=== PATIENT | female | born 1975 | race Caucasian/White ===

== ENCOUNTER 2017-09-23 13:48 | Inpatient (IN) | payer MEDICARE ==
[2017-09-23] MEDS ORDERED: RINGERS SOLUTION,LACTATED 1,000 ML IV ONE ×3 (14:00→16:07)
[2017-09-23] MEDS ORDERED: ONDANSETRON HCL INJ/PF 4 MG/2 ML SDV IV ONE (14:00)
[2017-09-23] MEDS ORDERED: ONDANSETRON 4 MG TAB.RAPDIS PO ONE (14:00)
--- NOTE | 2017-09-23 14:03 | ER Document Report ---
ED Medical Screen (RME) - General Mode of Arrival: Wheelchair Information source: Patient, Relative - TRAVEL OUTSIDE OF THE [place].S. IN LAST 30 DAYS: No <EBONY WARREN - Last Filed: 09/23/17 13:58> <LEOBARDO BASILIO - Last Filed: 09/23/17 15:32> - General Chief Complaint: Nausea/Vomiting/Diarrhea Stated Complaint: VOMITING Time Seen by Provider: 09/23/17 13:54 Notes: 41 y.o female with a PMHx of Type 2 DM and rheumatoid arthritis presents to the ED with abd pain and vomiting. She reports that her pain is in her lower abd and periumbilical region slowly worsening since onset around 0300 this morning. pt reports watery diarrhea and that she has been around people with similar symptoms a couple weeks ago but no one currently. Pt denies any blood in vomit or stool. Pt states that she has experienced pain and vomiting like this in the past when she had the stomach flu. 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 No PCP. (EBONY WARREN) - Related Data Allergies/Adverse Reactions: Sulfa (Sulfonamide Antibiotics) Allergy (Verified 09/23/17 13:58) Past Medical History - General Information source: Patient - Social History Cigarette use (# per day): No Chew tobacco use (# tins/day): No Frequency of alcohol use: None Drug Abuse: None <EBONY WARREN - Last Filed: 09/23/17 13:58> Review of Systems - Review of Systems Constitutional: No symptoms reported EENT: No symptoms reported Cardiovascular: No symptoms reported Respiratory: No symptoms reported Gastrointestinal: See HPI, Abdominal pain, Diarrhea, Nausea, Vomiting. denies: Blood in vomit Genitourinary: No symptoms reported Female Genitourinary: No symptoms reported Musculoskeletal: No symptoms reported Skin: No symptoms reported Hematologic/Lymphatic: No symptoms reported Neurological/Psychological: No symptoms reported -: Yes All other systems reviewed and negative <EBONY WARREN - Last Filed: 09/23/17 13:58> Physical Exam <EBONY WARREN - Last Filed: 09/23/17 13:58> <LEOBARDO BASILIO - Last Filed: 09/23/17 15:32> - Vital signs Vitals: Temp Pulse Resp BP Pulse Ox 98.6 F 126 H 18 92/67 L 97 09/23/17 13:52 09/23/17 13:52 09/23/17 13:52 09/23/17 13:52 09/23/17 13:52 - Notes Notes: Physical Exam: General: Alert, retching, uncomfortable. HEENT: Normocephalic. Atraumatic. PERRLA. Extraocular movements intact. Oropharynx clear. Neck: Supple. Respiratory: No respiratory distress. Heart: Tachycardic rate, regular rhythm. Abdominal: No distension. Extremities: Moves all four extremities. Neurological: Normal cognition. AAOx4. Normal speech. Psychological: Normal affect. Normal Mood. Skin: Warm to touch. (EBONY WARREN) Course - Laboratory Result Diagrams: 09/23/17 14:20 09/23/17 14:20 <LEOBARDO BASILIO - Last Filed: 09/23/17 15:32> - Vital Signs Vital signs: Temp Pulse Resp BP Pulse Ox 98.6 F 126 H 18 92/67 L 97 09/23/17 13:52 09/23/17 13:52 09/23/17 13:52 09/23/17 13:52 09/23/17 13:52 - Laboratory Laboratory results interpreted by me: 09/23/17 09/23/17 14:20 14:20 RDW 16.7 H Seg Neutrophils % 81.2 H Lymphocytes % 10.4 L Glucose 158 H Scribe Documentation - Scribe Written by Scribe:: Ata Quintanilla 09/23/17 1406 acting as scribe for :: Alessia <EBONY WARREN - Last Filed: 09/23/17 13:58>
--- NOTE | 2017-09-23 14:25 | ER Document Report ---
ED General - General Chief Complaint: Nausea/Vomiting/Diarrhea Stated Complaint: VOMITING Time Seen by Provider: 09/23/17 13:54 Mode of Arrival: Wheelchair Notes: Patient with history of rheumatoid arthritis on methotrexate weekly presents with 3 days of profuse watery nonbloody diarrhea nausea and nonbloody nonbilious vomiting. Patient states that she has diffuse abdominal pain that is worse in the right lower quadrant. She still has her appendix. Denies any recent fevers cough or congestion denies any chest pain at this time. Her daughter had similar symptoms of diarrhea several weeks ago but otherwise has not been attacks. No recent hospitalizations but is currently on amoxicillin for upper respiratory infection. Denies any history of C. difficile. Denies any travel outside the country or outside of the state recently. TRAVEL OUTSIDE OF THE [place] IN LAST 30 DAYS: No - Related Data Allergies/Adverse Reactions: Sulfa (Sulfonamide Antibiotics) Allergy (Verified 09/23/17 13:58) Past Medical History - General Information source: Patient - Social History Smoking Status: Never Smoker Cigarette use (# per day): No Chew tobacco use (# tins/day): No Frequency of alcohol use: None Drug Abuse: None Family History: Reviewed & Not Pertinent Patient has suicidal ideation: No Patient has homicidal ideation: No Renal/ Medical History: Denies: Hx Peritoneal Dialysis Review of Systems - Review of Systems Constitutional: Malaise EENT: No symptoms reported Cardiovascular: No symptoms reported Respiratory: No symptoms reported Gastrointestinal: Abdominal pain, Diarrhea, Vomiting Genitourinary: No symptoms reported Female Genitourinary: No symptoms reported Musculoskeletal: No symptoms reported Skin: No symptoms reported Hematologic/Lymphatic: No symptoms reported Neurological/Psychological: No symptoms reported Physical Exam - Vital signs Vitals: Temp Pulse Resp BP Pulse Ox 98.6 F 126 H 18 92/67 L 97 09/23/17 13:52 09/23/17 13:52 09/23/17 13:52 09/23/17 13:52 09/23/17 13:52 - General General appearance: Other - Tired appearing - HEENT Head: Normocephalic, Atraumatic - Dry oral mucous membranes - Respiratory Respiratory status: No respiratory distress Chest status: Nontender Breath sounds: Normal Chest palpation: Normal - Cardiovascular Rhythm: Tachycardia Heart sounds: Normal auscultation - Abdominal Inspection: Normal Distension: No distension Bowel sounds: Normal Tenderness: Tender, McBurney's point - Back Back: Normal - Neurological Neuro grossly intact: Yes - Psychological Associated symptoms: Normal affect, Normal mood Course - Re-evaluation Re-evalutation: 09/23/17 14:24 Patient has mild tachycardia with dry oral mucous membranes. Patient is currently on amoxicillin at this time for upper respiratory infection. C. difficile and stool cultures will be obtained. She also has tenderness more so in her right lower quadrant than any other quadrant on abdominal exam. Will perform CT abdomen pelvis rule out acute pathology. 09/23/17 16:10 CT abdomen pelvis shows right lower lobe pneumonia consistent with aspiration pneumonia. Patient remains tachycardic but her blood pressure on repeat manual was 110/60. Patient alert and oriented. Due to immunocompromise state due to rheumatoid arthritis medications being taken patient will be admitted to inpatient. Zosyn blood cultures and fecal culture and C. difficile pending. Discussed case with Dr. Damian who will accept the patient - Vital Signs Vital signs: Temp Pulse Resp BP Pulse Ox 98.6 F 126 H 18 110/60 97 09/23/17 13:52 09/23/17 13:52 09/23/17 13:52 09/23/17 16:08 09/23/17 13:52 - Laboratory Result Diagrams: 09/23/17 14:20 09/23/17 14:20 Laboratory results interpreted by me: 09/23/17 09/23/17 14:20 14:20 RDW 16.7 H Seg Neutrophils % 81.2 H Lymphocytes % 10.4 L Glucose 158 H Discharge - Discharge Clinical Impression: Dehydration Aspiration pneumonia Qualifiers: Aspiration pneumonia type: unspecified Laterality: right Lung location: lower lobe of lung Qualified Code(s): J69.0 - Pneumonitis due to inhalation of food and vomit Diarrhea Qualifiers: Diarrhea type: unspecified type Qualified Code(s): R19.7 - Diarrhea, unspecified Vomiting Qualifiers: Vomiting type: unspecified Vomiting Intractability: non-intractable Nausea presence: with nausea Qualified Code(s): R11.2 - Nausea with vomiting, unspecified Condition: Fair Disposition: ADMITTED INPATIENT Admitting Provider: Rickie Unit Admitted: CU
[2017-09-23 14:53] LABS: ALANINE AMINOTRANSFERASE 34 U/L (9-52); ALBUMIN 3.7 g/dL (3.5-5.0); ALKALINE PHOSPHATASE 60 U/L (38-126); ANION GAP 13 (5-19); ASPARTATE AMINO TRANSFERASE 23 U/L (14-36); BILIRUBIN,DIRECT 0.2 mg/dL (0.0-0.4); BILIRUBIN,TOTAL 0.4 mg/dL (0.2-1.3); BLOOD UREA NITROGEN 16 mg/dL (7-20); CALCIUM 8.9 mg/dL (8.4-10.2); CARBON DIOXIDE 26 mmol/L (22-30); CHLORIDE 103 mmol/L (98-107); GLUCOSE 158 mg/dL (75-110); LIPASE 65.8 U/L (23-300); POTASSIUM 4.2 mmol/L (3.6-5.0); SODIUM 141.5 mmol/L (137-145); TOTAL PROTEIN 6.4 g/dL (6.3-8.2)
[2017-09-23 14:57] LABS: ABSOLUTE EOSINOPHILS # (AUTO) 0.1 10^3/uL (0.0-0.6); ABSOLUTE LYMPHOCYTES (AUTO) 0.7 10^3/uL (0.5-4.7); ABSOLUTE MONOCYTES (AUTO) 0.5 10^3/uL (0.1-1.4); ABSOLUTE NEUT (AUTO) 5.8 10^3/uL (1.7-8.2); BASOPHILS % (AUTO) 0.1 % (0-2); EOSINOPHILS % (AUTO) 1.1 % (0-6); HEMATOCRIT 37.2 % (36.0-47.0); HEMOGLOBIN 12.3 g/dL (12.0-15.5); LYMPHOCYTES % (AUTO) 10.4 % (13-45); MEAN CORPUSCULAR HEMOGLOBIN 28.4 pg (27.0-33.4); MEAN CORPUSCULAR HGB CONC 33.2 g/dL (32.0-36.0); MEAN CORPUSCULAR VOLUME 86 fl (80-97); MONOCYTES % (AUTO) 7.2 % (3-13); PLATELET COUNT 202 10^3/uL (150-450); RED BLOOD COUNT 4.35 10^6/uL (3.72-5.28); RED CELL DISTRIBUTION WIDTH 16.7 % (11.5-14.0); SEGMENTED NEUTROPHILS % (AUTO) 81.2 % (42-78); TOTAL CELLS COUNTED % (AUTO) 100 %; WHITE BLOOD COUNT 7.1 10^3/uL (4.0-10.5)
--- NOTE | 2017-09-23 15:34 | RADIOLOGY REPORT (SQ) ---
EXAM DESCRIPTION: CT ABD/PELVIS WITH IV ONLY COMPLETED DATE/TIME: 09/23/2017 3:18 pm REASON FOR STUDY: N/V/D, RLQ TTP COMPARISON: None. TECHNIQUE: CT scan of the abdomen and pelvis performed using helical scanning technique with dynamic intravenous contrast injection. No oral contrast. Images reviewed with lung, soft tissue, and bone windows. Reconstructed coronal and sagittal MPR images reviewed. Delayed images for evaluation of the urinary system also acquired. All images stored on PACS. All CT scanners at this facility use dose modulation, iterative reconstruction, and/or weight based d osing when appropriate to reduce radiation dose to as low as reasonably achievable (ALARA). [facility]: Dose Right [facility]: CareDose [facility]: Dose Right [facility]: Teradose 4D [facility]: Forward Talent CONTRAST TYPE AND DOSE: contrast/concentration: Isovue 370.00 mg/ml; Total Contrast Delivered: 79.0 ml; Total Saline Delivered: 68.0 ml RENAL FUNCTION: None required. The patient is less than 50 years old. RADIATION DOSE: CT Rad equipment meets quality standard of care and radiation dose reduction techniq ues were employed. CTDIvol: 7.0 - 9.6 mGy. DLP: 996 mGy-cm.. LIMITATIONS: None. FINDINGS: LOWER CHEST: There is patchy airspace consolidation in the right lower lobe, consistent wi th pneumonia. Aspiration pneumonia is not excluded. LIVER: Normal size. No masses. No dilated ducts. SPLEEN: There are multiple hypodense lesions within the spleen. Large measures 1.8 cm. PANCREAS: No masses. No significant calcifications. No adjacent inflammation or peripancreatic fluid collections. Pancreatic duct not dilated. GALLBLADDER: Surgically absent. ADRENAL GLANDS: No significant masses or asymmetry. RIGHT KIDNEY AND URETER: No solid masses. No significant calcifications. No hydronephrosis or hyd roureter. LEFT KIDNEY AND URETER: No solid masses. No significant calcifications. No hydronephrosis or hydr oureter. AORTA AND VESSELS: No aneurysm. No dissection. Renal arteries, SMA, celiac without stenosis. RETROPERITONEUM: No retroperitoneal adenopathy, hemorrhage or masses. BOWEL AND PERITONEAL CAVITY: No masses or inflammatory changes. No free fluid or peritoneal masses. APPENDIX: Normal. PELVIS: No mass. No free fluid. Normal bladder. ABDOMINAL WALL: There is some edema and possible small hematoma formation in the superficial soft tis sues of the anterior aspect of the left lower quadrant. In the anterior superficial soft tissues of the lower pelvis there is a small structure with internal calcifications, consistent with a shot gran uloma. BONES: No significant or acute findings. OTHER: No other significant finding. IMPRESSION: 1. Patchy consolidation in the right lower lobe, consistent with pneumonia. Given the pattern, this may represent aspiration pneumonia. Recommend clinical correlation. 2. No evidence of an acute intra-abdominal process 3. Multiple hypoattenuating lesions within the spleen. These likely represent simple cysts, however they are incompletely evaluated on this exam. Consider MRI for a routine basis for further characte rization if clinically warranted. TECHNICAL DOCUMENTATION: JOB ID: [id number] Quality ID # [id number]: Final reports with documentation of one or more dose reduction techniques (e.g., Au tomated exposure control, adjustment of the mA and/or kV according to patient size, use of iterative reconstruction technique) 2010 [employer]- All Rights Reserved Reading location - IP/workstation name: [email or web address]
[2017-09-23] MEDS ORDERED: FENTANYL CITRATE INJ/PF 100 MCG/2 ML AMPUL IV ONE (15:52)
[2017-09-23] MEDS ORDERED: ACETAMINOPHEN 325 MG TABLET PO PRN (16:25)
[2017-09-23] MEDS ORDERED: RINGERS SOLUTION,LACTATED 1,000 ML IV PRN (16:25)
[2017-09-23] MEDS ORDERED: PROMETHAZINE HCL INJ 50 MG/1 ML VIAL IM PRN (16:36)
[2017-09-23] MEDS ORDERED: ONDANSETRON HCL INJ/PF 4 MG/2 ML SDV IV PRN (16:36)
[2017-09-23] MEDS ORDERED: GLUCAGON,HUMAN RECOMB 1 MG INJ IM PRN (16:42)
[2017-09-23] MEDS ORDERED: DEXTROSE 50%-WATER 25 GM/50 ML DISP.SYRIN IV PRN ×2 (16:42)
[2017-09-23] MEDS ORDERED: DEXTROSE 40% GEL 15 GM TUBE PO PRN ×2 (16:42)
[2017-09-23] MEDS ORDERED: PIPERACILLIN/TAZOBACTAM 4.5 GM VIAL IV PRN (17:20)
[2017-09-23] MEDS: LACTOBACILLUS ACIDOPHILUS 250 MG TAB PO SCH (18:23)
[2017-09-23] MEDS ORDERED: PIPERACILLIN/TAZOBACTAM 4.5 GM VIAL IV ONE (18:56)
--- NOTE | 2017-09-23 18:59 | HISTORY AND PHYSICAL E ---
History and Physical NAME: EBONY PALACIO : 1975 AGE: 41Y ADMITTED: 09/23/2017 ROOM: 317 CODE STATUS: Full code. 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 Cobb in [place], [place]. ELEMENTARY ART TEACHER: Dr. Kumar at [facility]. CHIEF COMPLAINT: Nausea, vomiting, diarrhea. HISTORY OF PRESENT ILLNESS: The patient is a 41-year-old female with a past medical history of rheumatoid arthritis and chronic immunosuppression. The patient presented to the emergency department with a chief complaint of watery diarrhea. According to the patient her children have had viruses that have consisted of GI symptoms since [facility], affecting each child in the family. The patient stated that she had a generalized body ache 3 days ago and subsequently took a gram and a half of amoxicillin for these symptoms. The patient felt fever, chilled, and persisted vomiting as well and subsequent choking associated with this. Upon presentation to the emergency department the patient was found to be tachycardic with a heart rate of 126. Findings on chest x-ray suggestive of a right lower lobe pneumonia and significant hypotension with systolic blood pressures in the 80s. The patient received a fluid bolus with improvement of her blood pressure into the 90s systolically, an improvement of her heart rate into the 110s. The patient has been afebrile since presentation. The patient is unable to quantify how much diarrhea that she has had but just states that it is watery. The patient denies any respiratory symptoms, including shortness of breath. The patient denies any chest pain. No cough or sputum production. The patient has been referred to the hospitalist for admission and management. PAST MEDICAL HISTORY: 1. Rheumatoid arthritis. 2. Diabetes mellitus type 2. 3. Hypothyroidism. PAST SURGICAL HISTORY: Negative. ALLERGIES: SULFA, WHICH IS ANAPHYLACTIC. HOME MEDICATIONS: 1. Xeljanz 11 mg p.o. daily. 2. Plaquenil 400 mg p.o. at bedtime. 3. Prednisone 10 mg p.o. q.a.m. and 10 mg p.o. q.p.m. 4. Folic acid 1 mg p.o. daily. 5. Trulicity 1.5 mg sub-Q weekly. 6. Levemir 66 units subcutaneously q.a.m. 7. Levothyroxine 100 mcg p.o. daily. SOCIAL HISTORY: The patient currently resides at home with her and children. 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 She does have 3 small children. The patient denies any history of tobacco use. No history of alcohol or illicit drug use. FAMILY MEDICAL HISTORY: The patient's mother is alive. She resides in a senior care facility with dementia. She is diabetic. The patient's father is of CVA. The patient does have a brother with type 2 diabetes and another brother with autism. The patient has 3 children, all of which are healthy. REVIEW OF SYSTEMS: CONSTITUTIONAL: The patient denies any weakness, but admits to loss of appetite, dizziness, fevers, and chills. SKIN: The patient denies any diaphoresis, rashes, bruising, itching. HEENT: The patient denies any vision change, hearing loss, nasal drainage, or sore throat. No headaches. CARDIOVASCULAR: The patient denies any heart palpitations, chest pain, or dyspnea. RESPIRATORY: The patient denies any cough, sputum production, or hemoptysis. GASTROINTESTINAL: The patient denies any hematemesis, melena, or hematochezia. Does admit to nausea, vomiting, as well as diarrhea. GENITOURINARY: The patient denies any hematuria, polyuria, or dysuria. NEUROLOGIC: No seizures, tremors, or loss of consciousness. HEMATOLOGIC: Denies any dariela bleeding, easy bruising. ENDOCRINE: Denies any recent weight changes. Had reasonable control of glycemic control. PSYCHIATRIC: Denies any suicidal or homicidal ideations. The rest of the review of the other organ systems is negative. PHYSICAL EXAMINATION: GENERAL: On examination the patient is a well-developed, well-nourished, 41-year-old female who is awake, alert. She oriented to person, place, time, and situation. She is verbal, conversational, does not appear to be in acute distress. VITAL SIGNS: Temperature 98.6, pulse 118, respirations 18, blood pressure is 109/67, oxygen saturation is 97% on room air. SKIN: Pale, dry; no rash. She is not diaphoretic. HEENT: Pupils equal, round reactive to light and accommodation. Conjunctivae are pink. Sclerae are nonicteric. There are no mouth lesions. Tongue is midline. NECK: Supple. No JVD. No palpable lymphadenopathy or thyromegaly. CARDIOVASCULAR: Heart is regular. There is no murmur or rub. CHEST: Clear, symmetrical, unlabored. ABDOMEN: Soft, nontender, nondistended. BACK: No CVA tenderness or sacral edema. EXTREMITIES: No clubbing, cyanosis, edema, or peripheral signs of embolization. Pedal pulses +1 noted bilaterally. PSYCHIATRIC: Appropriate affect, pleasant mood. DIAGNOSTIC STUDIES: Lab values are as follows, hematology obtained on 09/23/2017; WBC is 10.1, hemoglobin 12.3, hematocrit is 37.5, platelet count is 202,000. Chemistry obtained on 09/23/2017; sodium 141, potassium 4.2, chloride 103, carbon dioxide 26, BUN 16, creatinine 0.52, glucose 158, calcium is 8.9, bilirubin is 0.4, AST 23, ALT is 34, alk-phos 60, total protein 6.4, albumin 3.7. Lipase is 65.8. HCG is negative. CT of the abdomen and pelvis obtained on 09/23/2017 reveals patchy consolidation of the right lower lobe consistent with a pneumonia. No evidence of acute intraabdominal process with multiple hypoattenuation lesions within the spleen, most likely represents a simple cyst. IMPRESSION AND PLAN: 1. Acute gastroenteritis. Do have suspicion for a viral process. Will continue supportive measures including hydration and antiemetic therapy as well as stool studies and follow. 2. Aspiration pneumonia. Will cover with Zosyn. 3. Early sepsis. Given the patient is immunocompromised, I do not feel that she is going to have a bump in her white count, therefore, the patient does give a history of subjective fevers as well as hypotension, tachycardia, which does fit the picture for this. Will continue to aggressively hydrate and follow. 4. Rheumatoid arthritis. Will hold the patient's agents at this time. 5. Diabetes mellitus type 2. Will add a sliding scale coverage for now and monitor. CODE STATUS: The patient is a full code. DISPOSITION: Depending on the patient's symptomatology and diagnostic findings will reevaluate in the a.m. Will admit the patient to inpatient IMCU as the patient's expected length of stay should surpass two midnights. TIME SPENT: On this admission including assessment, plan, physical examination, patient education, review of previous records is 50 minutes. DICTATING PHYSICIAN: AGUSTO FROST NP [id number] PHY#: [id number] ID: [id number] JOB#: [id number] ACCT: [id number] cc:AGUSTO FROST NP > WILLIAM
[2017-09-23] MEDS: PIPERACILLIN SODIUM/TAZOBACTAM 4.5 GM in NORMAL SALINE 100 ML IV SCH (19:56)
[2017-09-23] MEDS ORDERED: NORMAL SALINE 500 ML IV ONE (21:30)
[2017-09-23] MEDS ORDERED: NORMAL SALINE 1000 ML 1,000 ML IV PRN (22:00)
[2017-09-23] MEDS: HEPARIN SOD (PORCINE) 5,000 UNIT/ML 1 ML SYRINGE SUBCUT SCH (22:04)
[2017-09-23] MEDS: ACETAMINOPHEN 325 MG TABLET PO PRN (23:11)
[2017-09-24] MEDS: PIPERACILLIN SODIUM/TAZOBACTAM 4.5 GM in NORMAL SALINE 100 ML IV SCH ×4 (00:50→17:19)
[2017-09-24 01:08] LABS: APPEARANCE,URINE CLEAR; BILIRUBIN,URINE NEGATIVE (NEGATIVE); COLOR,URINE YELLOW; GLUCOSE, URINE NEGATIVE (NEGATIVE); KETONES,URINE TRACE mg/dL (NEGATIVE); LEUKOCYTE ESTERASE,URINE NEGATIVE (NEGATIVE); NITRITE,URINE NEGATIVE (NEGATIVE); PROTEIN,URINE NEGATIVE (NEGATIVE); URINE SPECIFIC GRAVITY 1.027; UROBILINOGEN,URINE NEGATIVE mg/dL (<2.0)
[2017-09-24] MEDS: ACETAMINOPHEN 325 MG TABLET PO PRN ×3 (04:07→22:04)
[2017-09-24 05:53] LABS: HEMATOCRIT 34.2 % (36.0-47.0); HEMOGLOBIN 11.4 g/dL (12.0-15.5); MEAN CORPUSCULAR HEMOGLOBIN 28.5 pg (27.0-33.4); MEAN CORPUSCULAR HGB CONC 33.3 g/dL (32.0-36.0); MEAN CORPUSCULAR VOLUME 86 fl (80-97); PLATELET COUNT 159 10^3/uL (150-450); RED BLOOD COUNT 3.99 10^6/uL (3.72-5.28); RED CELL DISTRIBUTION WIDTH 17.1 % (11.5-14.0)
[2017-09-24] MEDS: HEPARIN SOD (PORCINE) 5,000 UNIT/ML 1 ML SYRINGE SUBCUT SCH ×3 (06:08→21:00)
[2017-09-24 06:16] LABS: ANION GAP 10 (5-19); BLOOD UREA NITROGEN 11 mg/dL (7-20); CARBON DIOXIDE 26 mmol/L (22-30); CHLORIDE 104 mmol/L (98-107); GLUCOSE 106 mg/dL (75-110); POTASSIUM 3.6 mmol/L (3.6-5.0); SODIUM 140.3 mmol/L (137-145)
[2017-09-24] MEDS: LACTOBACILLUS ACIDOPHILUS 250 MG TAB PO SCH ×2 (09:10→17:18)
[2017-09-24] MEDS ORDERED: RINGERS SOLUTION,LACTATED 1,000 ML IV ONE (09:30)
--- NOTE | 2017-09-24 12:45 | PROGRESS NOTE E ---
Progress Note NAME: EBONY PALACIO : 1975 AGE: 41Y DATE: 09/24/2017 ROOM: 317 SUBJECTIVE: The patient is currently lying in bed. She states that she feels better than she did yesterday, still a little weak. The patient has had 2 episodes of diarrhea since being at the hospital and stool studies were not collected until this morning because of that. The patient denies any chills, but does admit to a fever overnight and the patient spiked a temp up to 103.1. The patient's blood pressures remain systolically in the 90's. The patient is eating and drinking without issue. She is not making lactate. According to the patient, it appears that her family consumed almost all of the eggs that had been recalled, but denies consuming these raw. The patient does not voice any other concerns at this time. BRIEF HISTORY: The patient is a 41-year-old female with a past medical history of rheumatoid arthritis and chronic immunosuppression. The patient came to the emergency department with a chief complaint of persistent nausea and vomiting, which has been persisting, as well as diarrhea for over 2 days. The patient does have small children in the home who have had illnesses as well. The patient denied any respiratory symptoms. The patient did have a CT scan of the abdomen and pelvis and incidental finding was consistent with an aspiration pneumonia. The patient was started on Zosyn for coverage. The patient's stool studies have been negative for C. diff. and the patient was hypotensive and did receive a fluid bolus, but at no point was making lactate and the patient does not voice any concerns at this time. REVIEW OF SYSTEMS: The rest of the review of systems is negative. MEDICATIONS: Medications have been reviewed. OBJECTIVE: GENERAL: The patient is a 41-year-old female who is awake, alert, and oriented to person, place, time, and situation. She is verbal and conversational, does not appear to be in any acute distress. VITAL SIGNS: Temperature is 99.2, pulse 95, respirations 18, blood pressure is 94/60, oxygen saturation is 95% on room air. SKIN: Warm and dry. No rash. She is not diaphoretic. HEENT: Pupils equal, round, and reactive to light and accommodation. Conjunctivae pink. NECK: There is no evidence of JVD. CARDIOVASCULAR SYSTEM: Heart is regular. There is no murmur or rub. CHEST: Clear, symmetrical, unlabored. ABDOMEN: Soft, nontender, and nondistended. BACK: No CVA tenderness or sacral edema. EXTREMITIES: No clubbing, cyanosis, edema. PSYCHIATRIC: Appropriate affect, pleasant mood. DIAGNOSTIC DATA: Lab values are as follows: Hematology obtained on 09/24/2017: WBC's are 5.0, hemoglobin is 11.4, hematocrit is 34.2, platelet count is 159,000. Chemistries obtained on 09/24/2017: Sodium is 140, potassium is 3.6, chloride is 104, carbon dioxide 26, BUN 11, creatinine is 0.58, glucose is 106, calcium is 8.0, magnesium is 1.6. Microbiology: Blood cultures obtained 09/23/2017 are pending. Stool culture obtained on 09/24/2017 is pending. IMPRESSION AND PLAN: 1. ACUTE GASTRITIS. IT COULD BE A VIRAL PROCESS VERSUS POSSIBLE SALMONELLA, CURRENTLY AWAITING STOOL STUDIES. Will add Zithromax to cover possible salmonella and follow. 2. ASPIRATION PNEUMONIA SECONDARY TO THE PATIENT'S NAUSEA AND VOMITING. She is covered with Zosyn at this time. 3. EARLY SEPSIS. Given the patient's immunocompromised state, will continue to monitor the patient. Lactate acid was not elevated; however, she was hypotensive and quite febrile. Will continue to hydrate and monitor. 4. RHEUMATOID ARTHRITIS. Have held the patient's agents at this time. 5. DIABETES MELLITUS TYPE 2. Will continue sliding-scale coverage, hold the patient's oral agents. DISPOSITION: The patient is a FULL CODE. Pending the patient's symptomatology and diagnostic findings, will reevaluate in the a.m. TIME: Time spent on this followup including assessment, plan, physical examination, patient education, review of records is 25 minutes. DICTATING PHYSICIAN: AGUSTO FROST NP [id number] PHY#: [id number] ID: [id number] JOB#: [id number] ACCT: [id number] cc: >
[2017-09-24] MEDS: AZITHROMYCIN 500 MG in DEXTROSE 5%-WATER 250 ML IV SCH (14:52)
[2017-09-24] MEDS ORDERED: LEVOTHYROXINE SODIUM 0.1 MG TABLET PO ONE (15:30)
[2017-09-24] MEDS: INSULIN LISPRO 100 UNIT/ML 3 ML VIAL SUBCUT PRN (17:18)
[2017-09-24] MEDS: PREDNISONE 5 MG TABLET PO SCH (17:35)
[2017-09-24] MEDS ORDERED: PREDNISONE 5 MG TABLET PO SCH (18:00)
[2017-09-25] MEDS: PIPERACILLIN SODIUM/TAZOBACTAM 4.5 GM in NORMAL SALINE 100 ML IV SCH ×3 (00:02→11:12)
[2017-09-25] MEDS: HEPARIN SOD (PORCINE) 5,000 UNIT/ML 1 ML SYRINGE SUBCUT SCH ×3 (05:03→21:09)
[2017-09-25] MEDS: LEVOTHYROXINE SODIUM 0.1 MG TABLET PO SCH (05:28)
[2017-09-25] MEDS: LACTOBACILLUS ACIDOPHILUS 250 MG TAB PO SCH ×2 (09:19→17:55)
[2017-09-25] MEDS: CHOLECALCIFEROL (D3) 1,000 UNIT TABLET PO SCH (09:19)
[2017-09-25] MEDS: FOLIC ACID 1 MG TABLET PO SCH (09:20)
[2017-09-25] MEDS: PREDNISONE 5 MG TABLET PO SCH (09:20)
[2017-09-25] MEDS: ATORVASTATIN CALCIUM 20 MG TABLET PO SCH (09:20)
[2017-09-25] MEDS ORDERED: PROMETHAZINE HCL INJ 25 MG/1 ML VIAL IM PRN (10:23)
[2017-09-25] MEDS: AZITHROMYCIN 500 MG in DEXTROSE 5%-WATER 250 ML IV SCH (13:11)
[2017-09-25] MEDS ORDERED: DEXTROSE 5%-WATER 1000 ML 1,000 ML with POTASSIUM CHLORIDE 20 MEQ IV PRN ×2 (14:42)
[2017-09-25] MEDS ORDERED: POTASSI CL 20 MEQ/NS 1L 1000 ML IV PRN (15:15)
--- NOTE | 2017-09-25 15:21 | PDOC PROGRESS REPORT ---
Subjective Progress Note for:: 09/25/17 Subjective:: patient is complaining of nausea and continued abdominal pain Diarrhea is still persistent it is watery nonbloody non-mucousy She has no fever no chills and minimal cough Reason For Visit: DIARRHEA, PNA Physical Exam Vital Signs: Temp Pulse Resp BP Pulse Ox 97.5 F 89 17 94/63 L 100 09/25/17 11:35 09/25/17 11:35 09/25/17 11:35 09/25/17 11:35 09/25/17 11:35 Intake & Output 09/24/17 09/25/17 09/26/17 00:59 00:59 00:59 Intake Total 711 4705 722 Output Total 500 3300 500 Balance 211 1405 222 Weight 72.5 kg 73.4 kg She looks ill in no acute distress Pupils are PERRLA extraoccular motor intact Conjunctiva pale Neck supple no nodes no bruits Lungs are clear no rales no rhonchi Abdomen is diffusely tender without guarding or rebound Extremities are intact Neuro nonfocal Results Laboratory Results: 09/24/17 05:14 09/24/17 05:14 Impressions: Abdomen/Pelvis CT 09/23/17 14:25 IMPRESSION: 1. Patchy consolidation in the right lower lobe, consistent with pneumonia. Given the pattern, this may represent aspiration pneumonia. Recommend clinical correlation. 2. No evidence of an acute intra-abdominal process 3. Multiple hypoattenuating lesions within the spleen. These likely represent simple cysts, however they are incompletely evaluated on this exam. Consider MRI for a routine basis for further characterization if clinically warranted. Assessment & Plan - Diagnosis (1) Aspiration pneumonia Qualifiers: Aspiration pneumonia type: unspecified Laterality: right Lung location: lower lobe of lung Qualified Code(s): J69.0 - Pneumonitis due to inhalation of food and vomit Is this a current diagnosis for this admission?: Yes Plan: We will switch the coverage to Levaquin and Flagyl which will give adequate coverage for aspiration pneumonia Continue Mucinex Continue flutter valve (2) Dehydration Is this a current diagnosis for this admission?: Yes Plan: Continue IV fluids (3) Diarrhea Qualifiers: Diarrhea type: unspecified type Qualified Code(s): R19.7 - Diarrhea, unspecified Is this a current diagnosis for this admission?: Yes Plan: Etiology unclear Patient states she may have eaten contaminated eggs with Salmonella We will start treating her with Levaquin Noted that C. difficile toxin was negative and cultures are pending (4) Vomiting Qualifiers: Vomiting type: unspecified Vomiting Intractability: non-intractable Nausea presence: with nausea Qualified Code(s): R11.2 - Nausea with vomiting, unspecified Is this a current diagnosis for this admission?: Yes (5) History of rheumatoid arthritis Is this a current diagnosis for this admission?: Yes (6) Immunosuppressed status Is this a current diagnosis for this admission?: Yes Plan: Patient has been chronically on steroids We will increase dose of prednisone to 20 mg daily (7) Chronic steroid use Is this a current diagnosis for this admission?: Yes - Time Time Spent with patient: 25-34 minutes Within: within 48 hours - Inpatient Certification Based on my medical assessment, after consideration of the patient's comorbidities, presenting symptoms, or acuity I expect that the services needed warrant INPATIENT care.: Yes I certify that my determination is in accordance with my understanding of Medicare's requirements for reasonable and necessary INPATIENT services [42 CFR 412.3e].: Yes Medical Necessity: Need For IV Fluids, Need for IV Antibiotics
[2017-09-25] MEDS: METRONIDAZOLE 500 MG/NS RTU 100 ML IV SCH (17:55)
[2017-09-26] MEDS: METRONIDAZOLE 500 MG/NS RTU 100 ML IV SCH ×4 (00:06→17:41)
[2017-09-26] MEDS: ACETAMINOPHEN 325 MG TABLET PO PRN ×2 (00:35→22:31)
[2017-09-26] MEDS: LEVOTHYROXINE SODIUM 0.1 MG TABLET PO SCH (05:40)
[2017-09-26] MEDS: HEPARIN SOD (PORCINE) 5,000 UNIT/ML 1 ML SYRINGE SUBCUT SCH ×3 (05:40→21:26)
[2017-09-26 06:21] LABS: ABSOLUTE EOSINOPHILS # (AUTO) 0.1 10^3/uL (0.0-0.6); ABSOLUTE LYMPHOCYTES (AUTO) 1.1 10^3/uL (0.5-4.7); ABSOLUTE MONOCYTES (AUTO) 0.5 10^3/uL (0.1-1.4); ABSOLUTE NEUT (AUTO) 2.8 10^3/uL (1.7-8.2); BASOPHILS % (AUTO) 0.3 % (0-2); EOSINOPHILS % (AUTO) 2.2 % (0-6); HEMATOCRIT 30.9 % (36.0-47.0); HEMOGLOBIN 10.7 g/dL (12.0-15.5); LYMPHOCYTES % (AUTO) 24.5 % (13-45); MEAN CORPUSCULAR HGB CONC 34.7 g/dL (32.0-36.0); MONOCYTES % (AUTO) 11.1 % (3-13); PLATELET COUNT 178 10^3/uL (150-450); RED BLOOD COUNT 3.47 10^6/uL (3.72-5.28); RED CELL DISTRIBUTION WIDTH 16.3 % (11.5-14.0); SEGMENTED NEUTROPHILS % (AUTO) 61.9 % (42-78); TOTAL CELLS COUNTED % (AUTO) 100 %; WHITE BLOOD COUNT 4.5 10^3/uL (4.0-10.5)
[2017-09-26 06:23] LABS: MEAN CORPUSCULAR VOLUME 89 fl (80-97)
[2017-09-26 06:32] LABS: ALANINE AMINOTRANSFERASE 52 U/L (9-52); ALKALINE PHOSPHATASE 53 U/L (38-126); ANION GAP 7 (5-19); ASPARTATE AMINO TRANSFERASE 29 U/L (14-36); BLOOD UREA NITROGEN 9 mg/dL (7-20); CALCIUM 8.4 mg/dL (8.4-10.2); CARBON DIOXIDE 29 mmol/L (22-30); CHLORIDE 108 mmol/L (98-107); GLUCOSE 88 mg/dL (75-110); POTASSIUM 3.7 mmol/L (3.6-5.0); SODIUM 144.3 mmol/L (137-145); TOTAL PROTEIN 5.3 g/dL (6.3-8.2)
[2017-09-26 06:37] LABS: BILIRUBIN,TOTAL < 0.1 mg/dL (0.2-1.3)
[2017-09-26] MEDS: LEVOFLOXACIN 750 MG/D5W RTU 750 MG/150 ML RTUPB IV SCH (09:39)
[2017-09-26] MEDS: LACTOBACILLUS ACIDOPHILUS 250 MG TAB PO SCH ×2 (09:39→17:41)
[2017-09-26] MEDS: CHOLECALCIFEROL (D3) 1,000 UNIT TABLET PO SCH (09:39)
[2017-09-26] MEDS: ATORVASTATIN CALCIUM 20 MG TABLET PO SCH (09:39)
[2017-09-26] MEDS: PREDNISONE 20 MG TABLET PO SCH (09:39)
[2017-09-26] MEDS: FOLIC ACID 1 MG TABLET PO SCH (09:39)
--- NOTE | 2017-09-26 11:11 | PDOC PROGRESS REPORT ---
Subjective Progress Note for:: 09/26/17 Subjective:: Patient was admitted with abdominal pain nausea and vomiting as well as diarrhea which she says is much better today. She is currently on Zosyn and Flagyl. Reason For Visit: DIARRHEA, PNA Physical Exam Vital Signs: Temp Pulse Resp BP Pulse Ox 98.5 F 80 18 100/67 100 09/26/17 07:41 09/26/17 07:41 09/26/17 07:41 09/26/17 07:41 09/26/17 07:41 Intake & Output 09/25/17 09/26/17 09/27/17 06:59 06:59 06:59 Intake Total 3555 3058 Output Total 3400 1100 Balance 155 1958 Weight 73.4 kg 75.7 kg General appearance: PRESENT: no acute distress Head exam: PRESENT: atraumatic Eye exam: PRESENT: conjunctival injection Mouth exam: PRESENT: moist, tongue midline Neck exam: ABSENT: carotid bruit, JVD, lymphadenopathy, thyromegaly GI/Abdominal exam: PRESENT: distended, normal bowel sounds, soft. ABSENT: guarding, mass, organolmegaly, rebound, tenderness Rectal exam: PRESENT: deferred Extremities exam: PRESENT: joint swelling - PIP Musculoskeletal exam: PRESENT: ambulatory, full ROM Neurological exam: PRESENT: alert, awake, oriented to person, oriented to place , oriented to time, oriented to situation, CN II-XII grossly intact. ABSENT: motor sensory deficit Skin exam: PRESENT: dry, intact, warm. ABSENT: cyanosis, rash Results Laboratory Results: 09/26/17 05:09 09/26/17 05:09 09/26/17 09/26/17 05:09 05:09 WBC 4.5 RBC 3.47 L Hgb 10.7 L Hct 30.9 L MCV 89 MCH 31.0 MCHC 34.7 RDW 16.3 H Plt Count 178 Seg Neutrophils % 61.9 Lymphocytes % 24.5 Monocytes % 11.1 Eosinophils % 2.2 Basophils % 0.3 Absolute Neutrophils 2.8 Absolute Lymphocytes 1.1 Absolute Monocytes 0.5 Absolute Eosinophils 0.1 Absolute Basophils 0.0 Sodium 144.3 Potassium 3.7 Chloride 108 H Carbon Dioxide 29 Anion Gap 7 BUN 9 Creatinine 0.54 Est GFR ( Amer) > 60 Est GFR (Non-Af Amer) > 60 Glucose 88 Calcium 8.4 Total Bilirubin < 0.1 L AST 29 ALT 52 Alkaline Phosphatase 53 Total Protein 5.3 L Albumin 3.0 L 09/24/17 05:40 Stool - Stool - Final Impressions: Abdomen/Pelvis CT 09/23/17 14:25 IMPRESSION: 1. Patchy consolidation in the right lower lobe, consistent with pneumonia. Given the pattern, this may represent aspiration pneumonia. Recommend clinical correlation. 2. No evidence of an acute intra-abdominal process 3. Multiple hypoattenuating lesions within the spleen. These likely represent simple cysts, however they are incompletely evaluated on this exam. Consider MRI for a routine basis for further characterization if clinically warranted. Assessment & Plan - Time Time Spent with patient: 15-24 minutes Medications reviewed and adjusted accordingly: Yes Anticipated discharge: Home Within: within 48 hours - Plan Summary Plan Summary: Aspiration pneumonia of the right lung patient appears to be clinically better. Will reevaluate antibiotics and de-escalate as appropriate. 2. Dehydration likely from intravascular volume depletion from diarrhea. Will continue cautious IV fluid as needed 3. Diarrhea possibly infectious although this may also be antibiotic related. 4. History of rheumatoid arthritis patient is currently on an increased dose of prednisone 20 mg daily. She normally is on 2.5 mg twice a day. 5. Immunosuppressed status due to chronic low-dose steroid and history of rheumatoid arthritis.
[2017-09-26] MEDS: INSULIN LISPRO 100 UNIT/ML 3 ML VIAL SUBCUT PRN ×2 (17:41→22:25)
[2017-09-27] MEDS: METRONIDAZOLE 500 MG/NS RTU 100 ML IV SCH ×2 (00:27→05:55)
[2017-09-27] MEDS: HEPARIN SOD (PORCINE) 5,000 UNIT/ML 1 ML SYRINGE SUBCUT SCH (05:55)
[2017-09-27] MEDS: LEVOTHYROXINE SODIUM 0.1 MG TABLET PO SCH (05:55)
[2017-09-27] MEDS: LACTOBACILLUS ACIDOPHILUS 250 MG TAB PO SCH (09:34)
[2017-09-27] MEDS: FOLIC ACID 1 MG TABLET PO SCH (09:34)
[2017-09-27] MEDS: CHOLECALCIFEROL (D3) 1,000 UNIT TABLET PO SCH (09:34)
[2017-09-27] MEDS: PREDNISONE 20 MG TABLET PO SCH (09:34)
[2017-09-27] MEDS: ATORVASTATIN CALCIUM 20 MG TABLET PO SCH (09:35)
[2017-09-27] MEDS: LEVOFLOXACIN 750 MG/D5W RTU 750 MG/150 ML RTUPB IV SCH (09:36)
--- NOTE | 2017-09-27 11:34 | PDOC DISCHARGE SUMMARY ---
General - Admit/Disc Date/PCP Admission Date/Primary Care Provider: 09/23/17 16:25 Discharge Date: 09/27/17 - Discharge Diagnosis (1) Gastroenteritis Is this a current diagnosis for this admission?: Yes (2) Aspiration pneumonia Is this a current diagnosis for this admission?: Yes (3) Dehydration Is this a current diagnosis for this admission?: Yes (4) Diarrhea Is this a current diagnosis for this admission?: Yes (5) Immunosuppressed status Is this a current diagnosis for this admission?: Yes (6) Chronic steroid use Is this a current diagnosis for this admission?: Yes (7) History of rheumatoid arthritis Is this a current diagnosis for this admission?: Yes (8) Vomiting Is this a current diagnosis for this admission?: Yes (9) Type 2 diabetes mellitus Is this a current diagnosis for this admission?: Yes - Additional Information Resuscitation Status: Full Code Discharge Diet: As Tolerated, Diabetic Discharge Activity: Activity As Tolerated Prescriptions: Moxifloxacin HCl [Avelox] 400 mg PO DAILY #3 tablet Home Medications: Atorvastatin Calcium [Lipitor 20 mg Tablet] 20 mg PO DAILY 09/24/17 Cholecalciferol (Vitamin D3) [Vitamin D3 1000 Unit Tablet] 1,000 unit PO DAILY 09/24/17 Dulaglutide [Trulicity] 1.5 mg SQ WE@1000 09/24/17 Folic Acid [Folvite 1 mg Tablet] 2 mg PO DAILY 09/24/17 Hydroxychloroquine Sulfate [Plaquenil 200 mg Tablet] 400 mg PO DAILY 09/24/17 Levothyroxine Sodium [Synthroid 0.1 mg Tablet] 0.1 mg PO DAILY 09/24/17 Metformin HCl [Metformin HCl ER] 2,000 mg PO DAILY 09/24/17 Methotrexate Sodium [Methotrexate] 20 mg PO WE@1000 09/24/17 Prednisone [Deltasone 5 mg Tablet] 2.5 mg PO BID 09/24/17 Tofacitinib Citrate [Xeljanz Xr] 11 mg PO DAILY 09/24/17 Insulin Detemir [Levemir Flextouch] 45 unit SQ DAILY #0 09/27/17 Lactobacillus Acidophilus [Bacid 250 mg Tablet] 500 mg PO BID tab 09/27/17 Moxifloxacin HCl [Avelox] 400 mg PO DAILY #3 tablet 09/27/17 History of Present Illness History of Present Illness: EBONY PALACIO is a 41 year old female Hospital Course Hospital Course: Patient was admitted with nausea and vomiting as well as abdominal pain. She also had persistent diarrhea. She was thought to have pneumonitis due to aspiration from vomiting and she was treated with Levaquin and Flagyl in hospital. She also received IV fluids due to dehydration. She did have persistent diarrhea which has since resolved with negative so cultures. The diarrhea is thought to be likely due to a viral gastroenteritis which is now resolved. Patient does have a history of immunosuppression on various medications for rheumatoid arthritis including steroids and Biologics. She was placed on a high-dose of steroid in hospital but she is being discharged on her usual dose. Patient's blood sugar was also somewhat low to borderline in hospital and she has been advised to check blood sugars before starting her various hypoglycemic agents. With resolution of presenting symptoms and hemodynamic stability she has been discharged home. Physical Exam Vital Signs: Temp Pulse Resp BP Pulse Ox 98.8 F 76 16 101/72 98 09/27/17 03:59 09/27/17 07:00 09/27/17 03:59 09/27/17 03:59 09/27/17 03:59 Intake & Output 09/26/17 09/27/17 09/28/17 06:59 06:59 06:59 Intake Total 3058 7 Output Total 1100 Balance 1957 1916 Weight 75.7 kg 76 kg General appearance: PRESENT: no acute distress Head exam: PRESENT: atraumatic Mouth exam: PRESENT: moist, tongue midline Neck exam: ABSENT: carotid bruit, JVD, lymphadenopathy, thyromegaly Respiratory exam: PRESENT: clear to auscultation yeimy. ABSENT: rales, rhonchi, wheezes Cardiovascular exam: PRESENT: RRR. ABSENT: diastolic murmur, rubs, systolic murmur GI/Abdominal exam: PRESENT: normal bowel sounds, soft. ABSENT: distended, guarding, mass, organolmegaly, rebound, tenderness Rectal exam: PRESENT: deferred Extremities exam: PRESENT: full ROM. ABSENT: calf tenderness, clubbing, pedal edema Musculoskeletal exam: PRESENT: ambulatory Neurological exam: PRESENT: alert, awake, oriented to person, oriented to place , oriented to time, oriented to situation, CN II-XII grossly intact. ABSENT: motor sensory deficit Psychiatric exam: PRESENT: appropriate affect, normal mood. ABSENT: homicidal ideation, suicidal ideation Results Laboratory Results: 09/26/17 05:09 09/26/17 05:09 09/24/17 05:40 Stool - Stool - Final Impressions: Abdomen/Pelvis CT 09/23/17 14:25 IMPRESSION: 1. Patchy consolidation in the right lower lobe, consistent with pneumonia. Given the pattern, this may represent aspiration pneumonia. Recommend clinical correlation. 2. No evidence of an acute intra-abdominal process 3. Multiple hypoattenuating lesions within the spleen. These likely represent simple cysts, however they are incompletely evaluated on this exam. Consider MRI for a routine basis for further characterization if clinically warranted. Qualifiers - * PATEINT BEING DISCHARGED WITH ANY OF THE FOLLOWING DIAGNOSIS?: No Plan Time Spent: Greater than 30 Minutes
[2017-09-27] MEDS ORDERED: METRONIDAZOLE 500 MG TABLET PO SCH (12:00)
[2017-09-27 12:21] VITALS: BP 115/74
== END 2017-09-27 13:49 | disposition home or self-care (01) | DRG 179 ==
LOC: ER 13:48 → EH 16:25 → 3W 17:48
PROVIDERS: ADMIT Emergency Medicine; ATTEND Emergency Medicine
DX: J69.0 Pneumonitis due to inhalation of food and vomit (principal); E11.9 Type 2 diabetes mellitus without complications; E86.0 Dehydration; A08.4 Viral intestinal infection, unspecified; M06.9 Rheumatoid arthritis, unspecified; E03.9 Hypothyroidism, unspecified; Z79.52 Long term (current) use of systemic steroids; Z79.4 Long term (current) use of insulin; Z79.899 Other long term (current) drug therapy; Z88.2 Allergy status to sulfonamides; Z83.3 Family history of diabetes mellitus; Z82.3 Family history of stroke; Z81.0 Family history of intellectual disabilities
CPT/HCPCS: 36415; 74177; 80048; 80053; 81001; 82962; 83605; 83690; 83735; 84703; 85025; 85027; 87040; 87045; 87205; 87493; 89055; 96361; 96374; 96375; 99284; J0456; J1644; J1815; J1956; J2405; J2543; J2550; J3010; J3480; J3490; J7030; J7040; J7060; J7120; J7512; S0119

== ENCOUNTER → 2018-01-26 | Outpatient (CLI) | payer OTHER, MEDICARE ==
--- NOTE | 2018-01-26 11:34 | WOMENS IMAGING REPORT ---
EXAM DESCRIPTION: U/S THYROID/ST TIS HEAD NECK COMPLETED DATE/TIME: 01/26/2018 10:36 am REASON FOR STUDY: LYMPHADENOPATHY R59.1 R59.1 GENERALIZED ENLARGED LYMPH NODES COMPARISON: None. TECHNIQUE: Dynamic and static wheeler-scale images acquired of the thyroid gland. Selected additional c olor/power Doppler images recorded. All images stored to PACS. LIMITATIONS: None. FINDINGS: RIGHT LOBE: Normal size, 3 x 1.3 x 1.2 cm. Homogeneous echotexture. 3 mm hypoechoic nodu le. LEFT LOBE: Normal size, 4.1 x 1.1 x 1.7 cm. Homogeneous echotexture. Multiple isoechoic to hypoecho ic nodules. The largest measures 1.4 cm and demonstrates increased blood flow. ISTHMUS: Normal size, 1.8 mm. Homogeneous echotexture. No cystic or solid masses. OTHER: Multiple cervical nodes. The largest is adjacent to the carotid artery and measures 13 x 20 x 8 mm. These show normal fatty brigitte. IMPRESSION: Multinodular goiter. Consider biopsy of the largest nodule, this is in the left lobe. Multiple cervical lymph nodes. TECHNICAL DOCUMENTATION: JOB ID: [id number] [employer]- All Rights Reserved Reading location - IP/workstation name: [email or web address]
== END ==
LOC: WI 10:02
PROVIDERS: ATTEND Physician Assistant
DX: R59.1 Generalized enlarged lymph nodes (principal)
CPT/HCPCS: 76536

== ENCOUNTER → 2018-03-09 | Day surgery (SDC) | payer OTHER, MEDICARE ==
[~2018-03-09] MED LIST: LIDOCAINE 1% INJ-PF (10 MG/ML) 30 ML SDV ONE
--- NOTE | 2018-03-09 12:12 | RADIOLOGY REPORT (SQ) ---
EXAM DESCRIPTION: U/S BIOPSY THYROID COMPLETED DATE/TIME: 03/09/2018 10:23 am REASON FOR STUDY: THYROID NODULE E04.1 NONTOXIC SINGLE THYROID NODULE COMPARISON: None. TECHNIQUE: The procedure was discussed with the patient and written informed consent obtained. A ti meout was performed to confirm the procedure and patient's identity. The skin of the neck was preppe d and draped in sterile fashion and 1% lidocaine administered for local anesthesia. Under sonographic guidance, fine needle aspiration biopsy was per formed of the mass in the left lobe of the thyroid. Three separate aspirations were performed. Hemostasis was obtained with direct manual compression. There were no immediate complications. LIMITATIONS: None. FINDINGS: PATHOLOGY: Pending. IMPRESSION: ULTRASOUND-GUIDED BIOPSY PERFORMED OF A MASS IN THE LEFT LOBE OF THE THYROID. PATHOLOGY PENDING AT THE TIME OF DICTATION. COMMENT: Patient medication list reviewed: Yes- Quality ID# [id number]:Eligible professional attests to doc umenting in the medical record they obtained, updated, or reviewed the patient's current medications. TECHNICAL DOCUMENTATION: JOB ID: [id number] [employer]- All Rights Reserved Reading location - IP/workstation name: [facility] [email or web address]
== END ==
LOC: RAD 09:15
PROVIDERS: ATTEND Internal Medicine Endocrinology, Diabetes & Metabolism
DX: E04.1 Nontoxic single thyroid nodule (principal)
CPT/HCPCS: 88173 ×2; 60100; J3490

== ENCOUNTER → 2018-08-28 | Outpatient (CLI) | payer OTHER, MEDICARE ==
--- NOTE | 2018-08-28 11:00 | RADIOLOGY REPORT (SQ) ---
EXAM DESCRIPTION: CT SOFT TISSUE NECK WITH COMPLETED DATE/TIME: 08/28/2018 10:32 am REASON FOR STUDY: R59.0 LOCALIZED ENLARGED LYMPH NODES R59.0 LOCALIZED ENLARGED LYMPH NODES COMPARISON: None. TECHNIQUE: Post IV contrasted scanning from skull base through lung apices with review of bone, soft tissue and lung windows. Reconstructed coronal and sagittal MPR images reviewed. All images stored on PACS. All CT scanners at this facility use dose modulation, iterative reconstruction, and/or weight based d osing when appropriate to reduce radiation dose to as low as reasonably achievable (ALARA). [facility]: Dose Right [facility]: CareDose [facility]: Dose Right [facility]: Teradose 4D [facility]: [employer] CONTRAST TYPE AND DOSE: contrast/concentration: Isovue 350.00 mg/ml; Total Contrast Delivered: 75.0 ml; Total Saline Delivered: 55.0 ml RENAL FUNCTION: Creatinine 0.5 RADIATION DOSE: . LIMITATIONS: None. FINDINGS: SKULL BASE: Intact. MAJOR SALIVARY GLANDS: No solid or cystic masses. No inflammatory changes. LYMPHADENOPATHY: There are small bilateral cervical lymph nodes. At the site of the clinical palpabl e abnormality there is an 11.2 mm lymph node. Possibly 2 adjacent nodes. None are pathologic based on size criteria most demonstrates central fat attenuation consistent with benign reactive process. MUCOSAL MASSES OR ASYMMETRY: No mucosal masses or asymmetry. LARYNX/CORDS: No abnormal findings. VASCULAR STRUCTURES: The major vessels are patent. LUNG APICES: Clear. BONES: Intact. THYROID: Normal size. No masses. PARANASAL SINUSES: Clear. OTHER: No other significant finding. IMPRESSION: Scattered bilateral cervical and submental lymph nodes most likely reactive. No other s ignificant findings. TECHNICAL DOCUMENTATION: JOB ID: [id number] Quality ID # [id number]: Final reports with documentation of one or more dose reduction techniques (e.g., Au tomated exposure control, adjustment of the mA and/or kV according to patient size, use of iterative reconstruction technique) 2010 [employer]- All Rights Reserved Reading location - IP/workstation name: [email or web address]
== END ==
LOC: RAD 09:55
PROVIDERS: ATTEND Otolaryngology
DX: K11.8 Other diseases of salivary glands (principal); R59.0 Localized enlarged lymph nodes
CPT/HCPCS: 70491; 82565

== ENCOUNTER 2019-09-18 10:30 | Emergency (ER) | payer OTHER, MEDICARE ==
[2019-09-18] MEDS ORDERED: NORMAL SALINE 1000 ML 1,000 ML IV ONE (11:07)
[2019-09-18] MEDS ORDERED: DIPHENHYDRAMINE HCL 50 MG/ML VIAL IV ONE (11:07)
[2019-09-18] MEDS ORDERED: PROCHLORPERAZINE EDISYLATE INJ 10 MG/2 ML VIAL IV ONE (11:07)
[2019-09-18] MEDS ORDERED: FAMOTIDINE INJ/PF 20 MG/2 ML SDV IV ONE (11:08)
--- NOTE | 2019-09-18 12:43 | ER Document Report ---
Entered by MICKEY LOFTON SCRIBE 09/18/19 1107 Acting as scribe for:URMILA COTE MD ED Allergic Reaction - General Chief Complaint: Allergic Reaction Stated Complaint: POSSIBLE ALLERGIC REACTION Time Seen by Provider: 09/18/19 10:46 Primary Care Provider: VANGIE ESCALONA MD [Primary Care Provider] - Follow up as needed Mode of Arrival: Ambulatory Information source: Patient Notes: This 43 year old female patient presents to the emergency department today with complaints of tongue swelling for the last three days. Patient has RA and she states that she recently began having excruciating neck pain, right shoulder pain, and a headache so she took some of her 's oxycodone. Patient states she took #3 on 09/13, #3 on 09/14, and #1 on 09/15. Patient states after taking the pill on 09/15 she realized that this was the only new thing he had come into contact with so she stopped taking it, thinking she was allergic to it. Patient denies any fevers or cough. TRAVEL OUTSIDE OF THE [place] IN LAST 30 DAYS: No - Related Data Allergies/Adverse Reactions: oxycodone Allergy (Mild, Verified 09/18/19 11:07) Swollen tongue Sulfa (Sulfonamide Antibiotics) Allergy (Verified 09/18/19 10:52) Home Medications: trulicity, prednisone, methotrexate, metformin, synthroid, folic acid, vit d3, lipitor, baricitinib Past Medical History - General Information source: Patient - Social History Smoking Status: Never Smoker Cigarette use (# per day): No Chew tobacco use (# tins/day): No Frequency of alcohol use: None Drug Abuse: None Lives with: Family Family History: Reviewed & Not Pertinent Patient has suicidal ideation: No Patient has homicidal ideation: No - Past Medical History Cardiac Medical History: Reports: Hx Hypercholesterolemia Endocrine Medical History: Reports: Hx Diabetes Mellitus Type 2 Musculoskeletal Medical History: Reports Hx Arthritis - rheumatoid Past Surgical History: Reports: Hx Section - x3, Hx Cholecystectomy, Hx Tubal Ligation Review of Systems - Review of Systems Constitutional: No symptoms reported EENT: See HPI, Other - Tongue swelling Cardiovascular: No symptoms reported Respiratory: No symptoms reported Gastrointestinal: No symptoms reported Genitourinary: No symptoms reported Female Genitourinary: No symptoms reported Musculoskeletal: See HPI, Muscle pain, Muscle stiffness Skin: No symptoms reported Hematologic/Lymphatic: No symptoms reported Neurological/Psychological: See HPI, Headaches -: Yes All other systems reviewed and negative Physical Exam - Vital signs Vitals: Temp Pulse Resp BP Pulse Ox 97.7 F 83 16 143/90 H 99 09/18/19 10:34 09/18/19 10:34 09/18/19 10:34 09/18/19 10:34 09/18/19 10:34 - General General appearance: Appears well In distress: None - HEENT Head: Normocephalic, Atraumatic Eyes: Normal Pupils: PERRL External canal: Other - There is some tenderness to palpate the right TMJ when I have the patient open and close her mouth. Tympanic membrane: Bulging - Both TMs are slightly reddened, and seem to be bulging slightly along the inferior margins. Patient reports no change in her hearing or discomfort. Nasal: Normal Mouth/Lips: Other - The tongue has a scattered yellowish type coating which is predominantly on the right side and posterior aspect. I took a photograph of this and showed to the patient and she states that is a regular problem which her doctor told her may be due to some of her rheumatoid arthritis medication. The tongue itself is perhaps minimally swollen on the right posterior aspect. Pharynx: Normal. No: Uvular edema, Potential airway comprom. Neck: Other - Right posterior cervical muscles are very tender to palpate, extending down into the right trapezius region. Left side is much less tender. - Respiratory Respiratory status: No respiratory distress - Cardiovascular Rhythm: Regular - Abdominal Inspection: Normal - Back Back: Normal - Extremities General upper extremity: Normal inspection General lower extremity: Normal inspection - Neurological Neuro grossly intact: Yes - Psychological Associated symptoms: Normal affect, Normal mood - Skin Skin Temperature: Warm Skin Moisture: Dry Skin Color: Normal Course - Re-evaluation Re-evalutation: 09/18/19 13:13 Patient reports that her tongue does not feel as swollen as it did and almost back to normal. She also reports that her headache is considerably better now and she is able to move and turn her head without the pain she was feeling previously. - Vital Signs Vital signs: Temp Pulse Resp BP Pulse Ox 97.7 F 83 16 143/90 H 99 09/18/19 10:34 09/18/19 10:34 09/18/19 10:34 09/18/19 10:34 09/18/19 10:34 Discharge - Discharge Clinical Impression: Mild tongue swelling, Muscle tension headache Allergic reaction caused by a drug Qualifiers: Encounter type: initial encounter Qualified Code(s): T78.40XA - Allergy, unspecified, initial encounter Condition: Stable Disposition: HOME, SELF-CARE Additional Instructions: Acute Allergic Reaction-Tongue Swelling: Your symptoms are due to an allergic reaction. Allergy can cause hives, swelling of the hands, feet, and face, hoarseness, and difficulty swallowing or breathing. It may be due to exposure to medication, animal dander, foods, infection, or insect bites. Medication is a common cause, even when prior use of this same medication caused no problems. Acute treatment may include adrenalin and antihistamines. Usually, the specific allergic agent can't be identified unless repeated episodes occur. Home treatment includes the following: (1) Stop any suspicious medications. This will be discussed with you. (2) Oral antihistamines for the next four to five days. Example, diphenhydramine (Benadryl) every four hours if needed. (3) You may also use cimetidine (Tagamet) or famotidine (Pepcid) every four hours if diphenhydramine is not controlling the symptoms. (4) Avoid aspirin until the symptoms completely disappear. (5) Avoid hot bahs or showers until the hives are completely gone. Call the doctor if faintness, difficulty swallowing, tightness in the chest, or wheezing occurs. Tension Headache: Your problem has been diagnosed as muscle tension headache. This very common type of headache occurs because of tightness in the muscles of the head and neck. The cause may be neck or jaw joint problems. The headache may last hours or days. The treatment of uncomplicated tension headaches is rest and pain medication. Often, the newer antiinflammatory pain medications are prescribed, as these also decrease the irritability of the painful tissues. Muscle relaxers, cold packs, or warm packs are sometimes helpful. Anti-anxiety medication or narcotics are sometimes needed temporarily, but are best avoided in the long run. Your doctor has evaluated your headache problem, and finds no evidence of a serious health problem as a cause for the headache. If your headache becomes more severe, or if new symptoms develop (such as fever, stiff neck, vomiting, or decreasing alertness) you should be re-examined by the physician. Take Benadryl with ibuprofen for headache and neck pain if needed. Use try moist heat and/or ice packs to the painful neck and scalp muscles. Take Pepcid or Tagamet every 4 hours for the next 1 to 2 days to help prevent the tongue swelling. Drink plenty of fluids and get plenty of rest. Follow-up with your primary care provider if not improving. RETURN TO THE EMERGENCY ROOM IF ANY NEW OR WORSENING SYMPTOMS. Referrals: VANGIE ESCALONA MD [Primary Care Provider] - Follow up as needed I personally performed the services described in the documentation, reviewed and edited the documentation which was dictated to the scribe in my presence, and it accurately records my words and actions.
[2019-09-18 13:26] VITALS: BP 119/76
== END 2019-09-18 13:33 | disposition home or self-care (01) ==
LOC: ER 10:30
DX: T78.40XA Allergy, unspecified, initial encounter (principal); G44.209 Tension-type headache, unspecified, not intractable; R22.0 Localized swelling, mass and lump, head; M54.2 Cervicalgia; M25.511 Pain in right shoulder; Z79.899 Other long term (current) drug therapy; Z88.2 Allergy status to sulfonamides; Z88.8 Allergy status to other drugs, medicaments and biological substances; Z79.84 Long term (current) use of oral hypoglycemic drugs; E11.9 Type 2 diabetes mellitus without complications; X58.XXXA Exposure to other specified factors, initial encounter
CPT/HCPCS: 99283; 96361; 96374; 96375; J1200; J0780; J7030; S0028

== ENCOUNTER → 2020-06-22 | Day surgery (SDC) | payer OTHER, MEDICARE ==
[2020-06-17 10:11] LABS: HEMATOCRIT 35.4 % (36.0-47.0); MEAN CORPUSCULAR HEMOGLOBIN 23.9 pg (27.0-33.4); MEAN CORPUSCULAR HGB CONC 31.1 g/dL (32.0-36.0); MEAN CORPUSCULAR VOLUME 77 fl (80-97); PLATELET COUNT 294 10^3/uL (150-450); RED BLOOD COUNT 4.61 10^6/uL (3.72-5.28); RED CELL DISTRIBUTION WIDTH 20.2 % (11.5-14.0)
[2020-06-17 10:22] LABS: APPEARANCE,URINE CLOUDY; BILIRUBIN,URINE NEGATIVE (NEGATIVE); COLOR,URINE YELLOW; GLUCOSE, URINE NEGATIVE (NEGATIVE); KETONES,URINE NEGATIVE (NEGATIVE); LEUKOCYTE ESTERASE,URINE NEGATIVE (NEGATIVE); NITRITE,URINE NEGATIVE (NEGATIVE); PROTEIN,URINE NEGATIVE (NEGATIVE); URIC ACID CRYSTALS,URINE FEW /HPF; URINE SPECIFIC GRAVITY 1.026
[~2020-06-22] MED LIST changes: +CEFAZOLIN 1 GM/D5W RTU 1 GM/50 ML RTUPB IV ONE; +CEFAZOLIN 1 GM/D5W RTU 1 GM/50 ML RTUPB IV PRN; +DEXMEDETOMIDINE INJ 80 MCG/20 ML VIAL IV ONE; +DIPHENHYDRAMINE HCL 50 MG/ML VIAL IV PRN; +FENTANYL CITRATE INJ/PF 100 MCG/2 ML AMPUL IV PRN; +FENTANYL CITRATE INJ/PF 100 MCG/2 ML AMPUL ONE; +IBUPROFEN 800 MG TABLET ONE; +IBUPROFEN 800 MG TABLET PO SCH; +KETOROLAC TROMETHAMINE 60 MG/2 ML SDV ONE; +MEPERIDINE HCL/PF INJ 25 MG/1 ML DISP.SYRIN IV PRN; +MIDAZOLAM 2 MG/2 ML INJ ONE; +ONDANSETRON HCL 8 MG TABLET PO PRN; +ONDANSETRON HCL INJ/PF 4 MG/2 ML SDV IV PRN; +PROMETHAZINE HCL INJ 25 MG/1 ML VIAL IV PRN; +PROPOFOL INJ 200 MG/20 ML VIAL IV ONE
--- NOTE | 2020-06-22 09:42 | Operative Report ---
Operative Report DATE OF SURGERY: 06/22/20 PREOPERATIVE DIAGNOSIS: Menorrhagia POSTOPERATIVE DIAGNOSIS: Same OPERATION: D&C and endometrial ablation SURGEON: SUSAN FIGUEROA ANESTHESIA: LMAC TISSUE REMOVED OR ALTERED: Endometrial tissue COMPLICATIONS: None PROCEDURE: Patient placed in a dorsolithotomy position prepped draped sterile fashion. S peculum placed cervix visualized grasped single-tooth tenaculum sounded to a depth of 8 cm. The os was then dilated to a #8 dilator. Ross was then performed with no submucous fibroids or polyps being noted. Curettage was then performed with the minimal amount of tissue being recovered. The ablation was then accomplished with settings of 6.5 for the length 4.5 the with in the total burn was 42 seconds. Hysteroscopy was then repeated with a good zain being noted. Tenaculum and speculum previously placed were removed hemostasis was noted and procedure terminated.
[2020-06-22 13:21] VITALS: BP 111/74
== END ==
LOC: OROUT 07:38
PROVIDERS: ATTEND Obstetrics & Gynecology Gynecology
DX: N92.0 Excessive and frequent menstruation with regular cycle (principal); Z01.812 Encounter for preprocedural laboratory examination; Z20.822 Contact with and (suspected) exposure to COVID-19; E03.9 Hypothyroidism, unspecified; E11.9 Type 2 diabetes mellitus without complications; M06.9 Rheumatoid arthritis, unspecified; Z79.899 Other long term (current) drug therapy; Z79.890 Hormone replacement therapy; Z79.84 Long term (current) use of oral hypoglycemic drugs; Z90.49 Acquired absence of other specified parts of digestive tract
CPT/HCPCS: 58563; 36415; 82962; 85027; 87635; 81025; 81001; 88305 ×2; J2250; J0690; J1885; J3010; J2704; J3490; C9803; 952